=== PATIENT | male | born 1965 | race Caucasian/White ===

== ENCOUNTER 2019-12-05 08:20 | Day surgery (SDC) | payer BC, SELFPAY ==
[2019-12-05 09:24] LABS: Coronavirus 19 IgG Antibody Negative (Negative); Coronavirus 19 IgM Antibody Negative (Negative)
[2019-12-05 09:30] VITALS: BP 126/72; PULSE 56; RESP 16; TEMP 36.3; O2SAT 97
[2019-12-05 10:14] VITALS: BP 138/88; PULSE 52; RESP 18; TEMP 36.4; O2SAT 98
--- NOTE | 2019-12-05 12:10 | [facility].OPNOTE ---
Date of procedure: 12/05/19 Pre-op Diagnosis:: History of bladder cancer Post-op Diagnosis:: History of bladder cancer Procedure performed:: Cystourethroscopy Surgeon:: Huseyin Howard MD Anesthesia: local Estimated blood loss (mL): 0 Clinical Note:: Patient is a 54-year-old white male with history of bladder cancer. His original tumor was resected in September 2016. His last surveillance cystoscopy was June 2018 and [place]. Patient lives in [facility] and transfers his care to us at [facility]. He denies any interval hematuria or voiding problems. Operative findings:: No evidence of tumor recurrence. Operative note:: Patient taken to the treatment room on the stretcher. He was prepped and draped in the standard surgical fashion and 2% lidocaine placed into the urethra and the urethra clamped for 5 minutes. After 5 minutes the flexible cystoscope introduced into the urethral meatus. Passed to the prostatic urethra and into the bladder without difficulty. Bladder was examined in a systematic fashion. There is no evidence of bladder tumor recurrence, stones, trabeculation or diverticula. The ureteral orifices in their normal anatomic position with clear reflux of urine. Bladder neck and urethra were within normal limits as well. There was no evidence of an obstructing prostate. Patient tolerated procedure well. We discussed the findings today we will see him back in 1 year for cystoscopy. Condition: stable Disposition: same day Specimens:: None Complications:: None
[2019-12-06 06:03] LABS: POC Glucose,Bedside 138 (70-110)
== END 2019-12-05 10:20 | disposition home or self-care (01) ==
LOC: OUTP 08:27
PROVIDERS: Visit Provider Urology
PROC: (CPT 52000; principal; 2019-12-05 10:00)
DX: Z85.51 Personal history of malignant neoplasm of bladder (principal)
CPT/HCPCS: 52000; 36415; 82962; 86328